=== PATIENT | female | born 1955 | race Caucasian/White ===

== ENCOUNTER 2016-11-28 11:13 | Emergency (ER) | payer OTHER ==
[2016-11-28 11:39] VITALS: BP 127/82; PULSE 79; RESP 16; TEMP 97.7; O2SAT 96
--- NOTE | 2016-11-28 11:57 | UCPHY ---
H & P Time Seen by Provider: 11/28/16 11:23 Patient Type: New HPI/ROS: CHIEF COMPLAINT: Diarrhea History by patient HISTORY OF PRESENT ILLNESS: 61-year-old woman with no significant past medical history presents complaining of 1 week of copious, watery, nonbloody diarrhea. Patient states she is able to eat and drink but everything goes through her. She has had no nausea vomiting or fever. Her symptoms began just after returning home from [place] and she is concerned she had some contaminated ice in the airport in [facility][1]. She denies any abdominal pain. She has not tried anything for her symptoms at home. REVIEW OF SYSTEMS: As in HPI, and all other systems reviewed and are negative Smoking Status: Never smoked Physical Exam: General Appearance: Alert, well-appearing. Eyes: Pupils equal and round no pallor or injection. ENT, Mouth: Mucous membranes moist. Respiratory: Normal, effort, There are no retractions, lungs are clear to auscultation. Cardiovascular: Regular rate and rhythm. Gastrointestinal: Abdomen is soft and nontender, no masses, bowel sounds normal. Neurological: Awake, alert and oriented x 3, no pronator drift, normal gait, no pronator drift Skin: Warm and dry, no rashes. Musculoskeletal: Neck is supple nontender. Extremities are symmetrical, full range of motion. Psychiatric: Patient has normal affect, there is no agitation. Constitutional: Initial Vital Signs Temperature (C) 36.5 C 11/28/16 11:20 Heart Rate 79 11/28/16 11:20 Respiratory Rate 16 11/28/16 11:20 Blood Pressure 127/82 H 11/28/16 11:20 O2 Sat (%) 96 11/28/16 11:20 O2 Delivery Mode Room Air Allergies/Adverse Reactions: No Allergies [NKDA] Allergy (Verified 11/28/16 11:29) Home Medications: Medication Instructions Recorded Statin 11/28/16 Medical Decision Making ED Course/Re-evaluation: Patient presents emerged department with ongoing diarrhea after return from traveling to [place]. There is no evidence of clinical dehydration or significant toxicity. Patient was requesting antibiotics for her diarrhea however we discussed this was ill-advised if she had E coli 157. Patient attempted to provide a stool sample while in the emergency department was unable to therefore we have ordered outpatient stool studies for her. Patient has nonbloody diarrhea and therefore I recommended Imodium as needed for symptoms. We discussed return precautions. Departure - Departure Disposition: Home, Routine, Self-Care Clinical Impression: Diarrhea Qualifiers: Diarrhea type: presumed infectious Qualified Code(s): A09 - Infectious gastroenteritis and colitis, unspecified Condition: Good Instructions: Acute Diarrhea (ED) Additional Instructions: You were seen by Dr. Ginny Ramirez today. Return for any worsening or new concerns. Please bring in a sample of your stool to check for treatable causes and parasites. Continue to drink plenty of fluids eat what you feel like eating. Referrals: KUNAL GURROLA [Primary Care Provider] - As per Instructions Stand Alone Forms: Outpatient Laboratory Order - PQRS PQRS Measurement: NA
[2016-11-28 22:48] LABS: O/P DESCRIPTION LIQUID BROWN STOOL
[2016-12-02 18:11] LABS: O/P CONCENTRATION NONE SEEN (NONE SEEN)
[2016-12-03 08:34] LABS: O/P TRICHROME NONE SEEN (NONE SEEN)
== END 2016-11-28 12:08 | disposition home or self-care (01) ==
LOC: CED 11:13
DX: R19.7 Diarrhea, unspecified (principal)
CPT/HCPCS: 99203-PO; G0463-PO